=== PATIENT | male | born 1980 | race American Indian/Alaskan Native ===

== ENCOUNTER 2021-10-02 02:38 | Emergency (ER) | payer MEDICAID ==
[2021-10-02 06:40] VITALS: BP 157/99
[2021-10-02] MEDS ORDERED: LIDOCAINE VISCOUS 2% 15 ML ORAL LIQD PO ONE (07:31)
[2021-10-02] MEDS ORDERED: ALUM-MAG HYDROXIDE-SIMETHICONE 200-200-20MG/5ML ORAL LIQD 30 ML PO ONE (07:31)
[2021-10-02] MEDS ORDERED: KETOROLAC 30 MG/1 ML INJ IV ONE (07:31)
[2021-10-02] MEDS ORDERED: hydrALAZINE 20 MG/1 ML INJ IV ONE (07:36)
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
[2021-10-02 07:52] LABS: Basophils % (Auto) 0.8 % (0.0-1.8); Eosinophils # (Auto) 0.1 K/mm3 (0.0-0.4); Eosinophils % (Auto) 1.8 % (0.0-4.3); Hematocrit 41.2 % (35.5-45.6); Hemoglobin 14.3 gm/dl (11.8-15.2); Lymphocytes # (Auto) 2.2 K/mm3 (1.2-5.4); Lymphocytes % (Auto) 38.2 % (13.4-35.0); Mean Corpuscular HGB Conc 35 % (32-34); Mean Corpuscular Volume 90 fl (84-94); Monocytes # (Auto) 0.5 K/mm3 (0.0-0.8); Monocytes % (Auto) 8.2 % (0.0-7.3); Platelet Count 210 K/mm3 (140-440); Red Blood Count 4.56 M/mm3 (3.65-5.03)
--- NOTE | 2021-10-02 08:16 | XRay Report ---
CHEST 1 VIEW 10/02/2021 7:53 AM INDICATION / CLINICAL INFORMATION: chest pain. COMPARISON: 2 views of the chest from 07/31/2008. FINDINGS: SUPPORT DEVICES: None. HEART / MEDIASTINUM: No significant abnormality. LUNGS / PLEURA: No significant pulmonary abnormality. No significant pleural effusion. No pneumothora x. ADDITIONAL FINDINGS: No significant additional findings. IMPRESSION: 1. No acute abnormality of the chest. Signer Name: Long Mcgraw MD Signed: 10/02/2021 8:12 AM Workstation Name: [id number]
[2021-10-02 08:17] LABS: Alanine Aminotransferase 56 units/L (7-56); Albumin 4.6 g/dL (3.9-5); BUN/Creatinine Ratio 12; Blood Urea Nitrogen 12 mg/dL (9-20); Calcium 9.2 mg/dL (8.4-10.2); Hemolysis Index 5
[2021-10-02] MEDS ORDERED: POTASSIUM CHLORIDE ER 20 MEQ TAB PO ONE (08:52)
[2021-10-02] MEDS ORDERED: ALUM-MAG HYDROXIDE-SIMETHICONE 200-200-20MG/5ML ORAL LIQD 30 ML PO SCH (09:30)
[2021-10-02] MEDS ORDERED: LIDOCAINE VISCOUS 2% 15 ML ORAL LIQD PO SCH (09:30)
[2021-10-02] MEDS ORDERED: KETOROLAC 30 MG/1 ML INJ IV SCH (09:30)
[2021-10-02] MEDS ORDERED: POTASSIUM CHLORIDE ER 20 MEQ TAB PO SCH (09:30)
[2021-10-02] MEDS ORDERED: hydrALAZINE 20 MG/1 ML INJ IV SCH (09:30)
== END 2021-10-02 15:02 | disposition home or self-care (01) ==
LOC: ED 02:38
DX: R07.9 Chest pain, unspecified (principal); I10 Essential (primary) hypertension
CPT/HCPCS: 36415; 71045; 80053; 83880; 84484; 85025; 85379; 96374; 96375; 99284; J0360; J1885